=== PATIENT | male | born 1975 | race Caucasian/White ===

== ENCOUNTER 2018-06-21 17:02 | Observation (INO) | payer OTHER ==
--- NOTE | 2018-06-21 17:16 | PDOC ---
Rapid Medical Evaluation Medical Evaluation: Allergies Allergy/AdvReac Type Severity Reaction Status Date / Time aspirin Allergy Difficulty Verified 01/15/12 19:49 Breathing Penicillins Allergy Difficulty Verified 01/15/12 19:49 Breathing shellfish derived Allergy Hives Verified 01/15/12 19:49 PEACHES Allergy Hives Uncoded 01/15/12 19:49 STRAWBERRIES Allergy Hives Uncoded 01/15/12 19:49 06/21/18 17:12 I have performed a brief in-person evaluation of this patient. The patient presents with a chief complaint of:L chest pain worse w/ exertion x 4 days. Also reports sob, dizziness and feels clammy. States he vomited this am. Reports that he has had similar pain intermittently x years but was non- compliant w/ cards f/u so never got a stress or echo. States sxs worsen 4 days ago Pertinent physical exam findings:Stable w/clear chest/lungs I have ordered the following:ekg/cxr/lab The patient will proceed to the ED for further evaluation. Discharge Disposition - Diagnosis Chest pain Qualifiers: Chest pain type: unspecified Qualified Code(s): R07.9 - Chest pain, unspecified - Referrals - Patient Instructions - Post Discharge Activity
[2018-06-21 17:20] VITALS: BMI 20.7
[2018-06-21 17:40] LABS: BASO % 0.9 % (0-2.0); EOS % 0.9 % (0-4.5); HEMATOCRIT 42.3 % (35.4-49); HEMOGLOBIN 14.6 GM/dL (11.7-16.9); LYMPH % 32.9 % (8-40); MCH 32.4 pg (25.7-33.7); MCHC 34.7 g/dl (32.0-35.9); MEAN CELL VOLUME 93.4 fl (80-96); MEAN PLT VOLUME 7.8 fl (7.5-11.1); MONO % 13.4 % (3.8-10.2); NEUT % 51.9 % (42.8-82.8); PLATELET COUNT 256 K/MM3 (134-434); RBC 4.52 M/mm3 (4.00-5.60); WHITE BLOOD COUNT 4.4 K/mm3 (4.0-10.0)
[2018-06-21 18:00] LABS: ALBUMIN 4.2 g/dl (3.4-5.0); ALK PHOS 73 U/L (45-117); ANION GAP 9 MMOL/L (8-16); BILIRUBIN,TOTAL 1.3 mg/dL (0.2-1); BLOOD UREA NITROGEN 12 mg/dL (7-18); CALCIUM 9.5 mg/dL (8.5-10.1); CHLORIDE 99 mmol/L (98-107); CO2 27 mmol/L (21-32); CREATININE 1.2 mg/dL (0.55-1.3); GLUCOSE,RANDOM 90 mg/dL (74-106); N-TERMINAL BNP 31.1 pg/ml (5-125); POTASSIUM 3.9 mmol/L (3.5-5.1); SGOT/AST 28 U/L (15-37); SGPT/ALT 41 U/L (13-61); SODIUM 135 mmol/L (136-145); TOT PROT 7.3 g/dl (6.4-8.2)
--- NOTE | 2018-06-21 20:18 | PDOC ---
History of Present Illness - General Chief Complaint: Chest Pain Stated Complaint: CHEST PAIN Time Seen by Provider: 06/21/18 17:17 History Source: Patient Exam Limitations: No Limitations Past History - Past Medical History Allergies/Adverse Reactions: Allergies Allergy/AdvReac Type Severity Reaction Status Date / Time aspirin Allergy Difficulty Verified 01/15/12 19:49 Breathing Penicillins Allergy Difficulty Verified 01/15/12 19:49 Breathing shellfish derived Allergy Hives Verified 01/15/12 19:49 PEACHES Allergy Hives Uncoded 01/15/12 19:49 STRAWBERRIES Allergy Hives Uncoded 01/15/12 19:49 Home Medications: Ambulatory Orders Albuterol 0.083% Nebulizer Christine [Ventolin 0.083%] 1 neb NEB QID PRN 01/05/12 Albuterol Sulfate Inhaler - [Ventolin Hfa *Inhaler*] 1 - 2 inh IH QID PRN Oxycodone HCl/Acetaminophen [Percocet 5-325 mg Tablet] 1 - 2 tab PO Q6H #20 tablet 01/15/12 Asthma: Yes COPD: No - Suicide/Smoking/Psychosocial Hx Smoking Status: No Smoking History: Former smoker Have you smoked in the past 12 months: No Number of Cigarettes Smoked Daily: 0 Information on smoking cessation initiated: No Hx Alcohol Use: No Drug/Substance Use Hx: No *Physical Exam - Vital Signs Last Vital Signs Temp Pulse Resp BP Pulse Ox 99.0 F 87 16 126/92 100 06/21/18 17:10 06/21/18 17:10 06/21/18 17:10 06/21/18 17:10 06/21/18 17:10 - Physical Exam Respiratory/Chest: positive: Chest Tender (mild TTP along L anterior chest wall) , Lungs Clear, Normal Breath Sounds. negative: Respiratory Distress Cardiovascular: positive: Regular Rhythm, Regular Rate, S1, S2. negative: Murmur Gastrointestinal/Abdominal: positive: Normal Bowel Sounds, Soft. negative: Tender, Distended, Guarding, Rebound Extremity: positive: Normal Inspection. negative: Pedal Edema, Calf Tenderness Integumentary: positive: Normal Color Neurologic: positive: Alert, Normal Mood/Affect Moderate Sedation - Procedure Monitoring Vital Signs: Procedure Monitoring Vital Signs Temperature 99.0 F 06/21/18 17:10 Pulse Rate 87 02/22/19 17:10 Respiratory Rate 16 06/21/18 17:10 Blood Pressure 126/92 06/21/18 17:10 O2 Sat by Pulse Oximetry (%) 100 06/21/18 17:10 ED Treatment Course - LABORATORY CBC & Chemistry Diagram: 06/21/18 17:21 06/21/18 17:21 - ADDITIONAL ORDERS Additional order review: Laboratory Results 06/21/18 17:21 Sodium 135 L Potassium 3.9 Chloride 99 Carbon Dioxide 27 Anion Gap 9 BUN 12 Creatinine 1.2 Creat Clearance w eGFR > 60 Random Glucose 90 Calcium 9.5 Total Bilirubin 1.3 H AST 28 ALT 41 Alkaline Phosphatase 73 Creatine Kinase 247 Creatine Kinase Index 1.2 CK-MB (CK-2) 3.1 Troponin I < 0.02 B-Natriuretic Peptide 31.1 Total Protein 7.3 Albumin 4.2 06/21/18 17:21 RBC 4.52 MCV 93.4 MCHC 34.7 RDW 14.0 MPV 7.8 Neutrophils % 51.9 Lymphocytes % 32.9 Monocytes % 13.4 H Eosinophils % 0.9 Basophils % 0.9 Medical Decision Making - Medical Decision Making 43 y/o M hx of asthma presents with L sided sharp, nonradiating CP since 3 days ago, worse with exertion, along with mild SOB. Also had 2 episodes of emesis today. Mentions having similar CP few years ago, seeing black top paver operator and being recommended for stress test, but never getting around to having it done. Tried contacting his black top paver operator again but found out he no longer works. Mentions he smoked for a brief period (around 3 months, around 1-2 cigars/day, but quit around 3-4 months ago). Denies drug use. Denies fever, cough, abd pain, palpitations. Uncertain of family history as he was adopted EKG: NSR at 76 bpm, no ST-T Changes Initial trop neg CXR neg Heart score is 3 but given history, concern for possible stable angina Will admit for r/o ACS 06/21/18 20:14 *DC/Admit/Observation/Transfer Diagnosis at time of Disposition: Chest pain Qualifiers: Chest pain type: unspecified Qualified Code(s): R07.9 - Chest pain, unspecified - Discharge Dispostion Condition at time of disposition: Stable Decision to Admit order: Yes - Referrals Referrals: Oj Snyder MD [Primary Care Provider] - - Patient Instructions - Post Discharge Activity
--- NOTE | 2018-06-21 20:38 | PN ---
Teaching Attending Note Name of Resident: Cain Barahona ATTENDING PHYSICIAN STATEMENT I saw and evaluated the patient. I reviewed the resident's note and discussed the case with the resident. I agree with the resident's findings and plan as documented. SUBJECTIVE: SL-sided, non-radiating, worse with exertion. Has been present for 2 years; in the past 6 months it has gradually worsened in terms of frequency and in the past few days the intensity of the discomfort has increased. Associated with mild exertional SOB, some lightheadedness, and 2 episodes of vomitting and diarrhea. He associates occasional bloody diarrhea with this chronic CP for 2 yars; no tachycardia, normal Hb. No current bleeding. His chest pain is reproducible and atypical in nature. Never had any stress test or echocardiogram done. He tells me that a stress test was recommended by his electrical tests supervisor. 10 sys ROS done and negative aside from HPI PMH (Asthma, 2 year hx intermittent Chest Pain), PSH, Social hx, Family hx reviewed Medications include PRN Albuterol OBJECTIVE: VS, labs, imaging reviewed NAD, AAO, resting comfortably in bed NC AT EOMI PERRLA RRR s1/2 no mgr Lungs CTAB, w/ sym exp NT ND +BS CN2-12 wnl, no fnd Normal mood, appropriate behavior EKG without any ST-T elevation or marked depressions, some peaked T-waves in the precordial leads ASSESSMENT AND PLAN: Patient presents with chronic chest pain that has recently worsened; no prior cardiac workup. 1) Atypical Chest Pain in Adult -Will monitor on telemetry, trend troponin, discuss the case with his cardiology to see if he would benefit from inpatient stress. He states he saw a CV who is now retired 2 years ago for this pain but he never followed up OP for the testing due to being busy at the time 2) Hx Asthma, no current exacerbation -PRN albuterol; OP followup 3) Hx intermittent diarrhea +/- blood -If negative FOBT, given chronicity will check ESR/CRP to screen for any IBD; would recommend he see GI as an outpatient for further studies as these issues likely no not need inpatient workup (normal lytes, normal CBC, not tachy, etc.) 4) Elevated bilirubin -Fractionate; trend CMP. If persists RUQ US
--- NOTE | 2018-06-21 21:12 | HP ---
CHIEF COMPLAINT: PCP: HISTORY OF PRESENT ILLNESS: 43 y/o M hx of asthma p/w L sided sharp stabbing, nonradiating CP x 3 d and worse with exertion, along with mild exertional SOB, some lightheadedness. Pt also had 2 episodes of NBNB emesis and NB diarrhea today. Mentions having similar CP for the past 2 yrs and saw a binder sorter, who recommended for stress test, but pt never got around to having it done. ED tried contacting his binder sorter again but found out he no longer works. In the past 6 months it has gradually worsened in terms of frequency and in the past few days the intensity of the discomfort has increased. He notes occasional blood in stools w / onset coinciding with this chronic CP for 2 years. Pt says maybe ~2tsp of blood noted. Last noted blood 3-4 mo ago. No current bleeding. Pt mentions he smoked for a brief period (around 3 months, around 1-2 cigars/day , but quit around 3-4 months ago). Also endorses stress in his life, his adopted father 1 yr ago and his adopted mother is sick. Denies drug use. Denies fever, cough, abd pain, palpitations trauma, urinary sxs. Uncertain of family history as he was adopted ER course was notable for: (1)EKG: NSR at 76 bpm, no ST-T Changes, Initial trop neg, CXR neg (2) (3) Recent Travel: PAST MEDICAL HISTORY: see hpi PAST SURGICAL HISTORY: knee surgery- ACL repair Social History: Smoking: around 3 months, around 1-2 cigars/day, but quit around 3-4 months ago Alcohol: 2-3 beers every few days Drugs: denies Family History: Uncertain of family history as he was adopted Allergies aspirin Allergy (Verified 01/15/12 19:49) Difficulty Breathing Penicillins Allergy (Verified 01/15/12 19:49) Difficulty Breathing shellfish derived Allergy (Verified 01/15/12 19:49) Hives PEACHES Allergy (Uncoded 01/15/12 19:49) Hives STRAWBERRIES Allergy (Uncoded 01/15/12 19:49) Hives HOME MEDICATIONS: Home Medications Medication Instructions Recorded Albuterol 0.083% Nebulizer Christine 1 neb NEB QID PRN 01/05/12 [Ventolin 0.083%] Albuterol Sulfate Inhaler - 1 - 2 inh IH QID PRN 01/05/12 [Ventolin Hfa *Inhaler*] Oxycodone HCl/Acetaminophen 1 - 2 tab PO Q6H #20 tablet 01/15/12 [Percocet 5-325 mg Tablet] REVIEW OF SYSTEMS per hpi PHYSICAL EXAMINATION Vital Signs - 24 hr 06/21/18 17:10 Temperature 99.0 F Pulse Rate 87 Respiratory 16 Rate Blood Pressure 126/92 O2 Sat by Pulse 100 Oximetry (%) GENERAL: Awake, alert, and fully oriented, in no acute distress. HEAD: Normal with no signs of trauma. EYES: Pupils equal, round and reactive to light, extraocular movements intact, sclera anicteric, conjunctiva clear. No lid lag. EARS, NOSE, THROAT: Ears normal, nares patent, oropharynx clear without exudates. Moist mucous membranes. NECK: Normal range of motion, supple without lymphadenopathy, JVD, or masses. LUNGS: CTAB HEART: Regular rate and rhythm, normal S1 and S2 without murmur, rub or gallop. chest pain is reproducible, TTP SINA chest and medial to L sternal border. ABDOMEN: Soft, nontender, not distended, normoactive bowel sounds, no guarding, no rebound, no masses. RECTAL: empty vault, no bleeding, no hemorrhoids, no masses noted MUSCULOSKELETAL: Normal range of motion at all joints. No bony deformities or tenderness. No CVA tenderness. UPPER EXTREMITIES: 2+ pulses, warm, well-perfused. No cyanosis. No clubbing. No peripheral edema. LOWER EXTREMITIES: 2+ pulses, warm, well-perfused. No calf tenderness. No peripheral edema. NEUROLOGICAL: Cranial nerves II-XII intact. Normal speech. Normal gait. PSYCHIATRIC: Cooperative. Good eye contact. Appropriate mood and affect. SKIN: Warm, dry, normal turgor, no rashes or lesions noted, normal capillary refill. Laboratory Results - last 24 hr 06/21/18 06/21/18 17:21 17:21 WBC 4.4 RBC 4.52 Hgb 14.6 Hct 42.3 MCV 93.4 MCH 32.4 MCHC 34.7 RDW 14.0 Plt Count 256 MPV 7.8 Absolute Neuts (auto) 2.3 Neutrophils % 51.9 Lymphocytes % 32.9 Monocytes % 13.4 H Eosinophils % 0.9 Basophils % 0.9 Nucleated RBC % 0 Sodium 135 L Potassium 3.9 Chloride 99 Carbon Dioxide 27 Anion Gap 9 BUN 12 Creatinine 1.2 Creat Clearance w eGFR > 60 Random Glucose 90 Calcium 9.5 Total Bilirubin 1.3 H AST 28 ALT 41 Alkaline Phosphatase 73 Creatine Kinase 247 Creatine Kinase Index 1.2 CK-MB (CK-2) 3.1 Troponin I < 0.02 B-Natriuretic Peptide 31.1 Total Protein 7.3 Albumin 4.2 ASSESSMENT/PLAN: 43 y/o M hx of asthma p/w L sided sharp stabbing, nonradiating CP x 3 d and worse with exertion, along with mild exertional SOB, some lightheadedness. Pt also had 2 episodes of NBNB emesis and NB diarrhea today. Atypical Chest pain - r/o ACS. VSS. EKyr of atypical reproducible CP. Never had any stress test or echocardiogram done. NSR at 76 bpm, no ST-T Changes, trop neg x2, CXR neg. May be 2/2 stress at home vs psychogenic -tele obs -echo -cardio consult -will f/u w/ cardio about the need for stress test -risk stratify: lipid panel, A1c Asthma - no current exacerbation -PRN albuterol Vomit w/ intermittent diarrhea +/- blood - likely 2/2 viral vs 2/2 CP. RECTAL EXAM NL, no active bleeding, normal lytes, normal CBC, not tachy, BP wnl -FOBT neg -given chronicity will check ESR/CRP to screen for any IBD -recommend GI as an outpatient for further studies -monitor H/H Elevated bilirubin -Fractionate; trend CMP. If persists RUQ US FEN no IVF replete prn NPO ppx SQH, FOBT was neg Dispo tele obs Visit type - Emergency Visit Emergency Visit: Yes ED Registration Date: 06/21/18 Care time: The patient presented to the Emergency Department on the above date and was hospitalized for further evaluation of their emergent condition. - New Patient This patient is new to me today: Yes Date on this admission: 06/22/18 - Critical Care Critical Care patient: No
[2018-06-22 03:17] LABS: URINE APPEARANCE CLEAR; URINE BILIRUBIN NEGATIVE (<2.0 mg/dL); URINE COLOR LTYELLOW; URINE GLUCOSE (UA) NEGATIVE (NEGATIVE); URINE KETONE NEGATIVE (NEGATIVE); URINE LEUK ESTERASE NEGATIVE (NEGATIVE); URINE NITRITE NEGATIVE (NEGATIVE); URINE PROTEIN NEGATIVE (NEGATIVE); URINE UROBILINOGEN NEGATIVE mg/dL (0.2-1.0)
[2018-06-22 03:38] LABS: BILIRUBIN,DIRECT 0.1 mg/dL (0.0-0.2)
[2018-06-22 03:44] LABS: CHOLESTEROL 184 mg/dL (50-200); HDL CHOLESTEROL 73 mg/dL (40-60); TRIGLYCERIDES 318 mg/dL (0-150)
[2018-06-22] MEDS ORDERED: HEPARIN NA (PORCINE) 5,000 UNITS/ML 1ML VIAL SQ SCH (06:00)
[2018-06-22] MEDS ORDERED: HEPARIN NA (PORCINE) 5,000 UNITS/ML 1ML VIAL ONE (06:11)
[2018-06-22 06:30] LABS: HEMATOCRIT 40.6 % (35.4-49); HEMOGLOBIN 13.8 GM/dL (11.7-16.9); MCH 31.8 pg (25.7-33.7); MEAN CELL VOLUME 93.4 fl (80-96); MEAN PLT VOLUME 7.9 fl (7.5-11.1); PLATELET COUNT 231 K/MM3 (134-434); RBC 4.35 M/mm3 (4.00-5.60); WHITE BLOOD COUNT 3.1 K/mm3 (4.0-10.0)
[2018-06-22 07:05] LABS: ALBUMIN 3.7 g/dl (3.4-5.0); ALK PHOS 72 U/L (45-117); ANION GAP 6 MMOL/L (8-16); BILIRUBIN,TOTAL 0.7 mg/dL (0.2-1); BLOOD UREA NITROGEN 16 mg/dL (7-18); CALCIUM 9.5 mg/dL (8.5-10.1); CHLORIDE 103 mmol/L (98-107); CO2 28 mmol/L (21-32); CREATININE 1.2 mg/dL (0.55-1.3); GLUCOSE,RANDOM 89 mg/dL (74-106); MAGNESIUM 2.4 mg/dL (1.8-2.4); POTASSIUM 3.6 mmol/L (3.5-5.1); SGOT/AST 22 U/L (15-37); SGPT/ALT 34 U/L (13-61); SODIUM 137 mmol/L (136-145); TOT PROT 6.5 g/dl (6.4-8.2)
--- NOTE | 2018-06-22 10:21 | CON.CARD ---
Consult Consult Specialty:: Cardiology Referred by:: Medicine Reason for Consultation:: chest pain - History of Present Illness Chief Complaint: chest pain History of Present Illness: 43M h/o asthma p/w chest pain, stabbing, nonradiating for three days. Also has sob with exertion at times. Has had similar CP for the last two years, in the past was recommended stress test but did not have it done. Pain is reproducible with palpation and worse with taking dep breath. Has become more frequent in the last few days; says there is constant underlying pain that is worse when he changes positions, exerts himself or takes a deep breath. Trop neg x 2. - History Source History Provided By: Patient - Alcohol/Substance Use Hx Alcohol Use: No - Smoking History Smoking history: Former smoker Have you smoked in the past 12 months: No Aproximately how many cigarettes per day: 0 Home Medications - Allergies Allergies/Adverse Reactions: Allergies Allergy/AdvReac Type Severity Reaction Status Date / Time aspirin Allergy Difficulty Verified 01/15/12 19:49 Breathing Penicillins Allergy Difficulty Verified 01/15/12 19:49 Breathing shellfish derived Allergy Hives Verified 01/15/12 19:49 PEACHES Allergy Hives Uncoded 01/15/12 19:49 STRAWBERRIES Allergy Hives Uncoded 01/15/12 19:49 - Home Medications Home Medications: Ambulatory Orders NK [No Known Home Medication] 06/21/18 Family Disease History - Family Disease History Family History: Unremarkable Review of Systems - Review of Systems Constitutional: reports: No Symptoms Eyes: reports: No Symptoms HENT: reports: No Symptoms Neck: reports: No Symptoms Cardiovascular: reports: Chest Pain Respiratory: reports: No Symptoms Gastrointestinal: reports: No Symptoms Genitourinary: reports: No Symptoms Musculoskeletal: reports: No Symptoms Integumentary: reports: No Symptoms Neurological: reports: No Symptoms Endocrine: reports: No Symptoms Hematology/Lymphatic: reports: No Symptoms Psychiatric: reports: No Symptoms Vital Signs: Vital Signs Temperature 98.5 F 06/22/18 06:40 Pulse Rate 88 06/22/18 06:40 Respiratory Rate 06/22/18 06:40 Blood Pressure 128/76 06/22/18 06:40 O2 Sat by Pulse Oximetry (%) 100 06/22/18 06:40 Constitutional: Yes: No Distress, Calm Eyes: Yes: Conjunctiva Clear, EOM Intact HENT: Yes: Atraumatic, Normocephalic Neck: Yes: Supple, Trachea Midline Respiratory: Yes: Regular, CTA Bilaterally Gastrointestinal: Yes: Normal Bowel Sounds, Soft Cardiovascular: Yes: Regular Rate and Rhythm JVD: No Carotid Bruit: No PMI: Non-Displaced Heart Sounds: Yes: S1, S2 Murmur: No: Systolic Murmur Musculoskeletal: No: Back Pain Extremities: No: Cold Edema: No Peripheral Pulses WNL: Yes Peripheral Pulses: 2+ Left Doralis Pedis, 2+ Right Dorsalis Pedis Integumentary: No: Jaundice Neurological: Yes: Alert, Oriented Psychiatric: No: Agitated - Other Data Labs, Other Data: CBC, BMP 06/22/18 05:20 06/22/18 06:16 Troponin, BNP 06/21/18 06/22/18 17:21 02:56 Troponin I < 0.02 < 0.02 B-Natriuretic Peptide 31.1 Troponin, BNP 06/21/18 06/22/18 17:21 02:56 Troponin I < 0.02 < 0.02 B-Natriuretic Peptide 31.1 Assessment/Plan EKG:sinus, IRBBB CXR: no acute pathology tele: sinus Chest pain - trop neg x 2, EKG no ischemic changes - less likely ACS - history more consistent with musculoskeletal, worse with position change, palpation however occasional exertional component and has had dyspnea on exertion for the last 6 months - recommend follow up in 1-2 weeks for outpatient testing Asthma - manage per primary
--- NOTE | 2018-06-22 10:57 | DS ---
Physical Examination Vital Signs: Vital Signs Temperature 36.9 C 06/22/18 06:40 Pulse Rate 88 06/22/18 06:40 Respiratory Rate 19 06/22/18 06:40 Blood Pressure 128/76 06/22/18 06:40 O2 Sat by Pulse Oximetry (%) 100 06/22/18 06:40 Constitutional: Yes: Well Nourished, No Distress, Calm Cardiovascular: Yes: Regular Rate and Rhythm. No: Gallop, Murmur, Rub Respiratory: Yes: Regular, CTA Bilaterally. No: Rales, Rhonchi, Wheezes Gastrointestinal: Yes: Normal Bowel Sounds, Soft. No: Distention, Tenderness Extremities: Yes: WNL Edema: No Labs: CBC, BMP 06/22/18 05:20 06/22/18 06:16 Discharge Summary Reason For Visit: CHEST PAIN Current Active Problems Chest pain (Acute) Hospital Course: Mr Garza is a pleasant 43 year old gentleman who came in with chest pain. It has been present for 2 years but has recently increased in frequency. He says it is worse with exertion and palpation of the area. He came in to the ED for evaluation. He was admitted under observation. Cardiac enzymes x3 were sent and negative. EKG was performed and normal. He was seen by cardiology and cleared for discharge. He is to follow up with cardiology next week for an outpatient stress test. He is safe for discharge home. 31 minutes spent in preparation of this discharge Condition: Stable - Instructions Diet, Activity, Other Instructions: resume previous diet and activity Referrals: Oj Snyder MD [Primary Care Provider] - Maci Hancock MD [Staff Physician] - Disposition: HOME - Home Medications Comprehensive Discharge Medication List: Ambulatory Orders NK [No Known Home Medication] 06/21/18
[2018-06-22 11:04] VITALS: BP 128/79; PULSE 70; TEMP 98.2
--- NOTE | 2018-06-22 22:05 | EKG ---
Test Reason : Blood Pressure : / mmHG Vent. Rate : 076 BPM Atrial Rate : 076 BPM P-R Int : 148 ms QRS Dur : 098 ms QT Int : 368 ms P-R-T Axes : 061 010 044 degrees QTc Int : 414 ms NORMAL SINUS RHYTHM INCOMPLETE RIGHT BUNDLE BRANCH BLOCK BORDERLINE ECG WHEN COMPARED WITH ECG OF 10-NOV-2009 09:59, NO SIGNIFICANT CHANGE WAS FOUND Confirmed by ERIC KINGSTON MD ([id number]) on 06/22/2018 10:04:38 PM Referred By: Confirmed By:ERIC KINGSTON MD
== END 2018-06-22 11:15 | disposition home or self-care (01) ==
LOC: JER 17:02 → JERBED 21:29
PROVIDERS: ADMIT Internal Medicine; ATTEND Internal Medicine
PROC: 3E013GC Introduction of Other Therapeutic Substance into Subcutaneous Tissue, Percutaneous Approach (ICD-10-PCS; principal; 2018-06-21)
DX: R07.89 Other chest pain (principal); J45.909 Unspecified asthma, uncomplicated; Z87.891 Personal history of nicotine dependence; Z88.0 Allergy status to penicillin; Z88.6 Allergy status to analgesic agent; Z91.013 Allergy to seafood
CPT/HCPCS: 36415; 71046-TC-FY; 80053; 80061; 81003; 82248; 82272; 82550; 82553; 83036; 83721; 83735; 83880; 84443; 84484; 85025; 85027; 85651; 86140; 93005; 93010; 99285-25; G0378; J1644

== ENCOUNTER 2018-06-25 12:11 | Emergency (ER) | payer OTHER ==
[2018-06-25 12:17] VITALS: TEMP 98.1; BMI 20.7
--- NOTE | 2018-06-25 12:39 | PDOC ---
History of Present Illness - General Chief Complaint: Chest Pain Stated Complaint: CHEST PAIN Time Seen by Provider: 06/25/18 12:38 History Source: Patient Exam Limitations: No Limitations - History of Present Illness Initial Comments: 06/25/18 13:07 43 yr old man with history of asthma(intubations as a child) presents with left sided chest pain a/w 2 episodes of nonbilious nonbloody vomiting this morning, sob and intermittent chills for the past 2 years with recent increase in intensity on Sunday 06/18. He was evaluated as an inpatient with serial trops and by cardiology and was found not have ACS, he was recommended to follow-up as outpatient for further testing. Since DC he has mostly been in bed with the same pain in his chest. He came to the ED yesterday and to the [facility] and found both to be too busy, he did not feel like he could stay standing for that long. He did not try taking anything OTC for the pain. 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 ROS positive for cough that makes the pain worse. Past History - Past Medical History Allergies/Adverse Reactions: Allergies Allergy/AdvReac Type Severity Reaction Status Date / Time aspirin Allergy Difficulty Verified 01/15/12 19:49 Breathing Penicillins Allergy Difficulty Verified 01/15/12 19:49 Breathing shellfish derived Allergy Hives Verified 01/15/12 19:49 PEACHES Allergy Hives Uncoded 01/15/12 19:49 STRAWBERRIES Allergy Hives Uncoded 01/15/12 19:49 Home Medications: Ambulatory Orders NK [No Known Home Medication] 06/21/18 Asthma: Yes COPD: No - Suicide/Smoking/Psychosocial Hx Smoking Status: No Smoking History: Never smoked Have you smoked in the past 12 months: No Number of Cigarettes Smoked Daily: 0 Information on smoking cessation initiated: No Hx Alcohol Use: No Drug/Substance Use Hx: No Review of Systems - Review of Systems Constitutional: Yes: Chills, Diaphoresis, Weight Stable. No: Fever, Loss of Appetite HEENTM: No: Blurred Vision, Tinnitus, Throat Pain, Difficulty Swallowing Respiratory: Yes: Cough (dry), SOB with Exertion. No: SOB at Rest, Wheezing, Productive cough, Hemoptysis Cardiac (ROS): Yes: Chest Pain, Lightheadedness, Palpitations. No: Edema, Syncope ABD/GI: Yes: Vomiting. No: Abdominal Distended, Constipated, Diarrhea, Difficulty Swallowing, Nausea, Indigestion, Abdominal cramping : No: Dysuria, Frequency, Hematuria Musculoskeletal: No: Back Pain, Joint Pain, Joint Swelling, Muscle Pain, Muscle Weakness, Joint Stiffness Integumentary: Yes: Bruising (on his left arm due to blood draws on recent admission) Neurological: Yes: Dizziness. No: Headache, Numbness, Paresthesia, Tingling, Tremors, Weakness Psychiatric: Yes: Sleep Pattern Change (insomnia for past 6 months) Endocrine: No: Intolerance to Cold, Intolerance to Heat *Physical Exam - Vital Signs Last Vital Signs Temp Pulse Resp BP Pulse Ox 98.1 F 97 H 20 122/85 98 06/25/18 12:14 06/25/18 12:14 06/25/18 12:14 06/25/18 12:14 06/25/18 12:14 - Physical Exam General Appearance: Yes: Appropriately Dressed HEENT: positive: EOMI, CARMELLA, Pharynx Normal, Other (poor dentition) Neck: positive: Trachea midline, Normal Thyroid, Supple Respiratory/Chest: positive: Chest Tender, Lungs Clear. negative: Crackles, Rales, Rhonchi, Wheezing Cardiovascular: positive: Regular Rhythm, Regular Rate. negative: Murmur Gastrointestinal/Abdominal: positive: Normal Bowel Sounds, Flat, Soft Musculoskeletal: negative: CVA Tenderness Integumentary: positive: Dry, Warm Neurologic: positive: Fully Oriented, Alert Moderate Sedation - Procedure Monitoring Vital Signs: Procedure Monitoring Vital Signs Temperature 98.1 F 06/25/18 12:14 Pulse Rate 97 H 06/25/18 12:14 Respiratory Rate 20 06/25/18 12:14 Blood Pressure 122/85 06/25/18 12:14 O2 Sat by Pulse Oximetry (%) 98 06/25/18 12:14 ED Treatment Course - LABORATORY CBC & Chemistry Diagram: 06/25/18 13:25 06/25/18 13:25 Medical Decision Making - Medical Decision Making 06/25/18 13:28 43 yr old man with ongoing chest pain for past week recently evaluated by cardiology and serial enzymes presents again with chest pain. revealed that he drinks most days and his last drink was this morning EKG is unchanged today from previous. will check cbc, cmp, cardiac profile and chest xray for any progressing changes. given the pain is ongoing and continuous , will check 1 set of trop likely component of anxiety rather than cardiac, pt agreed to trial xanax if w/u negative and unchanged from previous, will dc home for outpatient f/u with his PCP, Dr. Snyder 06/25/18 14:25 labs all wnl, chest xray on my read without any acute infiltrate/effusion 06/25/18 14:45 pt resting comfortable after receiving the tylenol and xanax. reviewed all lab and imaging results with the patient. no acute abnormality or pathology to be treated. recommended he f/u with dr. Hancock and dr. Jackson's office for previously recommended stress test. discharge instructions provided verbally to return if pain progressively worsens or new symptoms develop, he states understanding and feels ready to f/u as outpatient. all questions answered to his satisfaction. referral also provided to [facility] if or when he seeks substance abuse treatment for his alcohol use. work note included in dc paperwork to return to work tomorrow. *DC/Admit/Observation/Transfer Diagnosis at time of Disposition: Chest pain - Discharge Dispostion Disposition: HOME Condition at time of disposition: Stable Decision to Admit order: No - Referrals Referrals: Oj Snyder MD [Staff Physician] - Maci Hancock MD [Staff Physician] - - Patient Instructions Printed Discharge Instructions: DI for Alcohol Abuse, DI for Chest Pain Additional Instructions: You were evaluated today for your chest pain. Please follow-up with Dr. Snyder's office and Dr. Hancock's office for further post-hospital evaluation. If your pain gets worse or you develop any new symptoms please return to the hospital. Please call [facility] in [place], [place] Address: [address] [place] [address], [id number] - Post Discharge Activity Forms/Work/School Notes: Back to Work
[2018-06-25] MEDS ORDERED: ACETAMINOPHEN 325 MG TABLET (FP) PO ONE (13:05)
[2018-06-25] MEDS ORDERED: ALPRAZolam 0.25 MG TABLET PO ONE (13:16)
[2018-06-25 13:33] LABS: BASO % 0.8 % (0-2.0); EOS % 4.5 % (0-4.5); HEMATOCRIT 43.7 % (35.4-49); HEMOGLOBIN 15.2 GM/dL (11.7-16.9); MCH 32.5 pg (25.7-33.7); MCHC 34.7 g/dl (32.0-35.9); MEAN CELL VOLUME 93.7 fl (80-96); MEAN PLT VOLUME 7.8 fl (7.5-11.1); MONO % 9.9 % (3.8-10.2); NEUT % 54.8 % (42.8-82.8); PLATELET COUNT 211 K/MM3 (134-434); RBC 4.67 M/mm3 (4.00-5.60); RDW 13.9 % (11.9-15.9); WHITE BLOOD COUNT 5.2 K/mm3 (4.0-10.0)
[2018-06-25] MEDS ORDERED: ACETAMINOPHEN 325 MG TABLET (FP) ONE (13:48)
[2018-06-25] MEDS ORDERED: ALPRAZolam 0.25 MG TABLET ONE (13:48)
[2018-06-25 14:02] LABS: ALBUMIN 3.8 g/dl (3.4-5.0); ALK PHOS 73 U/L (45-117); ANION GAP 8 MMOL/L (8-16); BILIRUBIN,TOTAL 0.5 mg/dL (0.2-1); BLOOD UREA NITROGEN 14 mg/dL (7-18); CHLORIDE 107 mmol/L (98-107); CO2 24 mmol/L (21-32); GLUCOSE,RANDOM 81 mg/dL (74-106); POTASSIUM 3.5 mmol/L (3.5-5.1); SGOT/AST 22 U/L (15-37); SGPT/ALT 35 U/L (13-61); SODIUM 139 mmol/L (136-145)
--- NOTE | 2018-06-25 14:27 | PDOC ---
Attending Attestation - Resident Resident Name: Lencho Hancock - ED Attending Attestation I have performed the following: I have examined & evaluated the patient, The case was reviewed & discussed with the resident, I agree w/resident's findings & plan - HPI HPI: 06/25/18 14:21 43-year-old male with history of asthma presents with chest pain, acute on chronic. Presents with recent admission for same after 6 months of ongoing chest pain, ruled out by troponins with plans for follow-up with cardiology as outpatient. Patient returns today secondary to episode of vomiting associated with this chest pain, which is new. The pain has not stopped since discharge, reports it as left-sided and associated with shortness of breath, palpitations, nausea and vomiting today. Some worsening with exertion, but also occurs randomly at rest. No risk factors, denies any drug use, admits to daily alcohol use but no history of withdrawal, with last alcohol intake being this morning. Also admits to significant life stressors over the last 6 months, correlating with the timeline of his symptoms. Personal and work issues without acute psych issues of suicidal ideations or depression. - Physicial Exam PE: 06/25/18 14:23 Vital signs are within normal limits Patient seen ambulating in the emergency department, history taken while lying in stretcher Intermittently tachypneic, but never in any distress poor eye contact, seems anxious Heart is regular without murmurs, lungs are clear Abdomen benign No edema or calf tenderness Neurologically intact - Medical Decision Making 06/25/18 14:24 43-year-old male with no significant ACS risk factors presents with atypical chest pain for 6 months, recent hospitalization and cardiology evaluation. Presentation is not consistent with ACS, clinically rules out for PE, seems more consistent with anxiety or stress. We'll check one troponin, sufficient in the setting of ongoing symptoms EKG, chest x-ray Agrees with trial of anxiolytic reassess, dispo with primary care team (Santi Snyder) Heart Score/ECG Review - History History: Slightly suspicious - Electrocardiogram EKG: Normal - Age Age: </= 45 - Risk Factors Based on the list above the patient has:: No risk factors known - Troponin Troponin: </= normal limit - Score Heart Score - Total: 0 #1 ECG reviewed & interpreted by me at: 12:21 General ECG Interpretation: Sinus Rhythm, Normal Rate (84), Normal Intervals ( qtc 411, IRBBB qrs 96), No acute ischemic changes Compared to previous ECG there are: No significant change
[2018-06-25 15:12] VITALS: BP 111/76; PULSE 82
--- NOTE | 2018-06-26 10:45 | EKG ---
Test Reason : Blood Pressure : / mmHG Vent. Rate : 084 BPM Atrial Rate : 084 BPM P-R Int : 164 ms QRS Dur : 096 ms QT Int : 348 ms P-R-T Axes : 027 002 036 degrees QTc Int : 411 ms NORMAL SINUS RHYTHM RSR' OR QR PATTERN IN V1 SUGGESTS RIGHT VENTRICULAR CONDUCTION DELAY BORDERLINE ECG WHEN COMPARED WITH ECG OF 21-JUN-2018 17:10, NO SIGNIFICANT CHANGE WAS FOUND Confirmed by REYNALDO GOETZ, JEANNE ([id number]) on 06/26/2018 10:45:09 AM Referred By: Confirmed By:JEANNE JACOBS MD
== END 2018-06-25 15:00 | disposition home or self-care (01) ==
LOC: JER 12:11
DX: R07.9 Chest pain, unspecified (principal); Z88.0 Allergy status to penicillin; Z88.6 Allergy status to analgesic agent; Z91.013 Allergy to seafood; Z91.018 Allergy to other foods
CPT/HCPCS: 36415; 71046-TC-FY; 80053; 82550; 84484; 85025; 93005; 93010; 99282-25

== ENCOUNTER 2018-06-26 08:29 | Emergency (ER) | payer OTHER ==
[2018-06-26] MEDS ORDERED: FAMOTIDINE 20 MG/50 ML IVPB 20 MG/50 ML MG IVPB ONE ×2 (09:07→09:11)
[2018-06-26] MEDS ORDERED: LORazepam 1 MG TABLET PO ONE (09:07)
[2018-06-26] MEDS ORDERED: LORazepam 0.5 MG TABLET ONE (09:11)
[2018-06-26 09:30] LABS: BASO % 0.6 % (0-2.0); EOS % 4.7 % (0-4.5); HEMATOCRIT 43.1 % (35.4-49); HEMOGLOBIN 15.1 GM/dL (11.7-16.9); LYMPH % 20.5 % (8-40); MCH 32.5 pg (25.7-33.7); MEAN CELL VOLUME 92.8 fl (80-96); MEAN PLT VOLUME 7.9 fl (7.5-11.1); MONO % 9.5 % (3.8-10.2); NEUT % 64.7 % (42.8-82.8); PLATELET COUNT 216 K/MM3 (134-434); RBC 4.64 M/mm3 (4.00-5.60); RDW 13.6 % (11.9-15.9); WHITE BLOOD COUNT 5.4 K/mm3 (4.0-10.0)
[2018-06-26] MEDS ORDERED: ASPIRIN 81 MG CHEWABLE TABLETS ONE (09:32)
[2018-06-26] MEDS ORDERED: ENOXAPARIN NA (PORCINE) 40 MG/0.4 ML DISP.SYRIN SQ ONE (09:33)
[2018-06-26] MEDS ORDERED: LISINOPRIL 20 MG TABLET (FP) ONE (09:33)
[2018-06-26] MEDS ORDERED: LORATADINE 10 MG TABLET ONE (09:33)
[2018-06-26 09:34] VITALS: TEMP 97.6; BMI 20.7
--- NOTE | 2018-06-26 09:46 | PDOC ---
History of Present Illness - General History Source: Patient Exam Limitations: No Limitations - History of Present Illness Initial Comments: 06/26/18 09:47 The patient is a 43-year-old male, with a past medical history of asthma ( intubations as a child), who presents to the ED for left-sided chest pain. Sharp in character, lasting for the past week, nonpleuritic, constant, exacerbated with strenuous activity, with associated headache, lightheadedness, shortness of breath, nausea, and vomiting. Patient reports 3 episodes of dry heaving at 7:30 AM this morning. Denies taking any medications for pain. 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 Patient states that he felt faint and went down on his knees. This episode lasted for approximately 15 minutes before he was able to get back up and continue working. He experienced another episode of lightheadedness with worsening chest pain and EMS was called. The patient was seen in the ED yesterday and on 06/21 for similar symptoms. The patient was discharged yesterday and was told to follow up with Dr. Hancock and Dr. Snyder for previously recommended stress test which he has not had. On exam , he reports that he has been more stressed at home and at work recently and has been drinking more than usual this past week. Patient drinks a couple of glasses of bourbon mixed with water daily. The patient denies any palpitations or diaphoresis. Denies any fevers, chills, diarrhea, or abdominal pain. Allergies: Aspirin, penicillins, shellfish derived, strawberries, and peaches. Surgical History: None reported. Social History: Reports alcohol use. The patient denies any tobacco or drug use. PCP: Dr. Snyder <Raquel Collins - Last Filed: 06/26/18 12:08> <Alphonso Alcantara - Last Filed: 06/26/18 13:08> - General Chief Complaint: Chest Pain Stated Complaint: CHEST PAIN Time Seen by Provider: 06/26/18 08:35 Past History <Raquel Collins - Last Filed: 06/26/18 12:08> - Past Medical History Asthma: Yes COPD: No Kidney Stones: No - Surgical History Gastric Stapling: No - Immunization History Immunization Up to Date: No - Suicide/Smoking/Psychosocial Hx Smoking Status: No Smoking History: Never smoked Have you smoked in the past 12 months: No Number of Cigarettes Smoked Daily: 0 Information on smoking cessation initiated: No Hx Alcohol Use: No Drug/Substance Use Hx: No <Alphonso Alcantara - Last Filed: 06/26/18 13:08> - Past Medical History Allergies/Adverse Reactions: Allergies Allergy/AdvReac Type Severity Reaction Status Date / Time aspirin Allergy Difficulty Verified 01/15/12 19:49 Breathing Penicillins Allergy Difficulty Verified 01/15/12 19:49 Breathing shellfish derived Allergy Hives Verified 01/15/12 19:49 PEACHES Allergy Hives Uncoded 01/15/12 19:49 STRAWBERRIES Allergy Hives Uncoded 01/15/12 19:49 Home Medications: Ambulatory Orders NK [No Known Home Medication] 06/21/18 Review of Systems - Review of Systems Able to Perform ROS?: Yes Comments:: 06/26/18 09:47 CONSTITUTIONAL: No fever, no chills, no fatigue EYES: No visual changes ENT: No ear pain, no sore throat CARDIOVASCULAR: (+)Lightheadedness, chest pain. No palpitations RESPIRATORY: No cough, no SOB GI: (+)Nausea, vomiting. No abdominal pain, no constipation, no diarrhea GENITOURINARY: No dysuria, no frequency, no hematuria MUSKULOSKELETAL: No backpain, no joint pain, no myalgias SKIN: No rash NEURO: (+)Headache <DennisRaquel - Last Filed: 06/26/18 12:08> *Physical Exam - Vital Signs Last Vital Signs Temp Pulse Resp BP Pulse Ox 97.6 F 89 16 133/81 100 06/26/18 08:37 06/26/18 08:37 06/26/18 08:37 06/26/18 08:37 06/26/18 08:37 - Physical Exam Comments: 06/26/18 09:48 CONSTITUTIONAL: (+)Tremulous. Well-appearing; well-nourished. HEAD: Normocephalic; atraumatic EYES: PERRL; EOM intact ENMT: External appears normal; normal oropharynx NECK: Supple; non-tender; no cervical lymphadenopathy CARD: Normal S1, S2; no murmurs, rubs, or gallops RESP: (+)Tachypneic, hyperventilating. Breath sounds clear and equal bilaterally ; no wheezes, rhonchi, or rales ABD: Soft, non-distended; non-tender; no palpable organomegaly, no palpable hernias EXT: Normal ROM in all four extremities; non-tender to palpation; distal pulses intact SKIN: Warm, dry, no rash NEURO: No focal neurological deficiencies. <Raquel Collins - Last Filed: 06/26/18 12:08> - Vital Signs Last Vital Signs Temp Pulse Resp BP Pulse Ox 97.6 F 89 16 133/81 100 06/26/18 08:37 06/26/18 08:37 06/26/18 08:37 06/26/18 08:37 06/26/18 08:37 <Alphonso Alcantara - Last Filed: 06/26/18 13:08> Moderate Sedation - Procedure Monitoring Vital Signs: Procedure Monitoring Vital Signs Temperature 97.6 F 06/26/18 08:37 Pulse Rate 89 06/26/18 08:37 Respiratory Rate 16 06/26/18 08:37 Blood Pressure 133/81 06/26/18 08:37 O2 Sat by Pulse Oximetry (%) 100 06/26/18 08:37 <Raquel Collins - Last Filed: 06/26/18 12:08> - Procedure Monitoring Vital Signs: Procedure Monitoring Vital Signs Temperature 97.6 F 06/26/18 08:37 Pulse Rate 89 06/26/18 08:37 Respiratory Rate 16 06/26/18 08:37 Blood Pressure 133/81 06/26/18 08:37 O2 Sat by Pulse Oximetry (%) 100 06/26/18 08:37 <Alphonso Alcantara - Last Filed: 06/26/18 13:08> ED Treatment Course - LABORATORY CBC & Chemistry Diagram: 06/26/18 09:21 06/26/18 09:21 - Medications Given in the ED: ED Medications Discontinued Medications Generic Name Dose Route Start Last Admin Trade Name Freq PRN Reason Stop Dose Admin Famotidine/Sodium Chloride 20 mg in 50 mls @ 100 mls/hr 06/26/18 09:07 09:12 Pepcid 20 Mg Premixed Ivpb - IVPB 06/26/18 09:36 100 mls/hr ONCE ONE Administration Lorazepam 1 mg 06/26/18 09:07 06/26/18 09:12 Ativan - PO 06/26/18 09:08 1 mg ONCE ONE Administration <Raquel Collins - Last Filed: 06/26/18 12:08> - LABORATORY CBC & Chemistry Diagram: 06/26/18 09:21 06/26/18 09:21 - Medications Given in the ED: ED Medications Discontinued Medications Generic Name Dose Route Start Last Admin Trade Name Kathia PRN Reason Stop Dose Admin Famotidine/Sodium Chloride 20 mg in 50 mls @ 100 mls/hr 06/26/18 09:07 09:12 Pepcid 20 Mg Premixed Ivpb - IVPB 06/26/18 09:36 100 mls/hr ONCE ONE Administration Lorazepam 1 mg 06/26/18 09:07 06/26/18 09:12 Ativan - PO 06/26/18 09:08 1 mg ONCE ONE Administration <Alphonso Alcantara - Last Filed: 06/26/18 13:08> Medical Decision Making - Medical Decision Making 06/26/18 12:06 Dr. Snyder was paged and notified via phone service, awaiting call back. 06/26/18 12:08 Dr. Hancock was called, case discussed. <Raquel Collins - Last Filed: 06/26/18 12:08> - Medical Decision Making 06/26/18 12:05 Patient is a 43-year-old male with history of asthma who presents to the ER for persistent intermittent left-sided chest pain that is reproducible for which he had been initially admitted to the ER and then reevaluated 24 hours previously. On initial evaluation, patient is anxious appearing, hyperventilating with reproducible left anterior chest wall tenderness to palpation which according to the patient has not changed in quality or quantity since its onset. Patient also reports that he has been drinking heavily over the past several days since the onset of symptoms in order to control his pain. EKG shows no evidence of acute ischemia. Serial abdominal exams reveal no focal tenderness. Cardiac enzymes are negative. Patient has had normal chest x-rays and I do not believe additional radiological studies are indicated at this time. Patient has received IV fluids, Pepcid and by mouth Ativan. On reassessment he is resting comfortably, with minimal chest discomfort only which is reproducible. He is no longer anxious appearing or tremulous. I will discuss the case with his primary care physician and cardiology to arrange for a more expedited evaluation. Likely will discharge. 06/26/18 13:06 Patient is resting comfortably and eating a meal in the ER. CBC/CMP/lipase/ cardiac profile within normal limit. I do not suspect ACS or PE at this time. Patient's heart score is noted to be 1. I discussed the case with Dr. Hancock of cardiology and Dr. Snyder of medicine. Patient will be contacted for prompt outpatient stress test and will follow-up with Dr. Snyder upon discharge from the ER. Will prescribe 2 days worth of Xanax as a bridge. Patient safe for outpatient evaluation and discharge. <Alphonso Alcantara - Last Filed: 06/26/18 13:08> *DC/Admit/Observation/Transfer - Attestations Scribe Attestion: 06/26/18 09:50 Documentation prepared by Raquel Collins, acting as director of graduate medical education for Alphonso Alcantara MD. <Raquel Collins - Last Filed: 06/26/18 12:08> - Attestations Physician Attestion: 06/26/18 12:05 The documentation was prepared by the scribe under my direct supervision. I have reviewed the documentation which correctly represents the findings, medical decision-making and critical action taken by me. <Alphonso Alcantara - Last Filed: 06/26/18 13:08> Diagnosis at time of Disposition: Chest pain Qualifiers: Chest pain type: unspecified Qualified Code(s): R07.9 - Chest pain, unspecified Nausea & vomiting Qualifiers: Vomiting type: unspecified Vomiting Intractability: non-intractable Qualified Code(s): R11.2 - Nausea with vomiting, unspecified - Discharge Dispostion Condition at time of disposition: Stable - Referrals Referrals: Oj Snyder MD [Primary Care Provider] - - Patient Instructions Printed Discharge Instructions: DI for Atypical Chest Pain, Nausea and Vomiting -Adult Additional Instructions: Please follow-up with your primary care physician as well as survey party chief within the next 48 hours. Take Pepcid-20 mg orally twice daily for the next 5 days. Decrease the amount of alcohol the you consume as it may be responsible for your symptoms. Return immediately for worsening symptoms. - Post Discharge Activity
[2018-06-26 10:00] LABS: ALBUMIN 3.9 g/dl (3.4-5.0); ALK PHOS 83 U/L (45-117); ANION GAP 9 MMOL/L (8-16); BILIRUBIN,TOTAL 0.4 mg/dL (0.2-1); BLOOD UREA NITROGEN 20 mg/dL (7-18); CALCIUM 8.9 mg/dL (8.5-10.1); CHLORIDE 107 mmol/L (98-107); CO2 24 mmol/L (21-32); CREATININE 1.2 mg/dL (0.55-1.3); GLUCOSE,RANDOM 93 mg/dL (74-106); LIPASE 365 U/L (73-393); POTASSIUM 3.5 mmol/L (3.5-5.1); SGOT/AST 26 U/L (15-37); SGPT/ALT 36 U/L (13-61); SODIUM 140 mmol/L (136-145)
[2018-06-26 10:43] VITALS: BP 121/85; PULSE 95
--- NOTE | 2018-06-26 10:43 | EKG ---
Test Reason : Blood Pressure : / mmHG Vent. Rate : 084 BPM Atrial Rate : 084 BPM P-R Int : 156 ms QRS Dur : 084 ms QT Int : 354 ms P-R-T Axes : 014 037 051 degrees QTc Int : 418 ms NORMAL SINUS RHYTHM NORMAL ECG WHEN COMPARED WITH ECG OF 25-JUN-2018 12:21, RSR' PATTERN IN V1 IS NO LONGER PRESENT Confirmed by REYNALDO GOETZ, JEANNE ([id number]) on 06/26/2018 10:43:07 AM Referred By: Confirmed By:JEANNE JACOBS MD
== END 2018-06-26 13:40 | disposition home or self-care (01) ==
LOC: JER 08:29
PROC: 3E033GC Introduction of Other Therapeutic Substance into Peripheral Vein, Percutaneous Approach (ICD-10-PCS; principal; 2018-06-26)
DX: R07.9 Chest pain, unspecified (principal); Z87.09 Personal history of other diseases of the respiratory system; Z88.0 Allergy status to penicillin; Z09 Encounter for follow-up examination after completed treatment for conditions other than malignant neoplasm; Z86.19 Personal history of other infectious and parasitic diseases; Z88.6 Allergy status to analgesic agent; Z91.013 Allergy to seafood
CPT/HCPCS: 36415; 80053; 82550; 83690; 83735; 84484; 85025; 93005; 93010; 99285-25

== ENCOUNTER 2020-09-14 15:44 | Emergency (ER) | payer OTHER ==
[2020-09-14 15:51] VITALS: BP 143/90; PULSE 90; TEMP 97.9; BMI 20.7
[2020-09-14] MEDS ORDERED: IBUPROFEN 600 MG TABLET (FP) PO ONE ×2 (16:39→16:48)
== END 2020-09-14 17:03 | disposition home or self-care (01) ==
LOC: JERFT 15:44
DX: M25.561 Pain in right knee (principal)
CPT/HCPCS: 73562-TC-RT-FY; 99283-25

== ENCOUNTER 2021-11-10 09:52 | Emergency (ER) | payer SELFPAY ==
[2021-11-10 10:23] VITALS: BMI 20.7
[2021-11-10] MEDS ORDERED: SODIUM CHLORIDE 1,000 ML IV STA ×2 (10:39→12:37)
[2021-11-10] MEDS ORDERED: ONDANSETRON 4 MG/2 ML VIAL IVPB ONE (10:39)
[2021-11-10] MEDS ORDERED: FAMOTIDINE 20 MG/50 ML IVPB 20 MG/50 ML MG IVPB ONE ×2 (10:39→10:53)
[2021-11-10] MEDS ORDERED: ONDANSETRON 4 MG/2 ML VIAL ONE (10:53)
[2021-11-10 11:21] LABS: HEMATOCRIT 40.6 % (35.4-49); HEMOGLOBIN 14.5 G/dL (11.7-16.9); MCH 32.2 pg (25.7-33.7); MCHC 35.7 g/dl (32.0-35.9); MEAN PLT VOLUME 7.3 fl (7.5-11.1); PLATELET COUNT 196.3 10^3/uL (134-434); RBC 4.51 10^6/uL (4.00-5.60); RDW 13.2 % (11.9-15.9); WHITE BLOOD COUNT 5.5 10^3/uL (4.0-10.8)
[2021-11-10 11:29] LABS: ALBUMIN 3.7 g/dl (3.4-5.0); BILIRUBIN,TOTAL 0.7 mg/dl (0.2-1); CALCIUM 9.1 mg/dl (8.5-10); CREATININE 1.5 mg/dl (0.55-1.3); TOT PROT 6.3 g/dl (6.4-8.2)
[2021-11-10 12:29] VITALS: TEMP 99.2
== END 2021-11-10 13:50 | disposition home or self-care (01) ==
LOC: FER 09:52
PROC: 3E033NZ Introduction of Analgesics, Hypnotics, Sedatives into Peripheral Vein, Percutaneous Approach (ICD-10-PCS; principal; 2021-11-10)
PROC: 3E033GC Introduction of Other Therapeutic Substance into Peripheral Vein, Percutaneous Approach (ICD-10-PCS; 2021-11-10)
PROC: 3E0337Z Introduction of Electrolytic and Water Balance Substance into Peripheral Vein, Percutaneous Approach (ICD-10-PCS; 2021-11-10)
PROC: 3E0337Z Introduction of Electrolytic and Water Balance Substance into Peripheral Vein, Percutaneous Approach (ICD-10-PCS; 2021-11-10)
DX: K52.9 Noninfective gastroenteritis and colitis, unspecified (principal)
CPT/HCPCS: 36415; 80053; 83690; 85027; 99284-25